=== PATIENT | female | born 1985 | race Hispanic/Latino ===

== ENCOUNTER → 2020-07-04 | Outpatient (CLI) | payer OTHER ==
[~2020-07-04] MED LIST: IOPAMIDOL 300 MG/ML 15ML VIAL IT ONE
== END ==
LOC: DX 08:18
PROVIDERS: ATTEND Obstetrics & Gynecology
DX: Z31.41 Encounter for fertility testing (principal)
CPT/HCPCS: 74740; 81025; Q9967